=== PATIENT | male | born 1950 | race Caucasian/White ===

== ENCOUNTER 2023-07-23 06:14 | Day surgery (SDC) | payer MEDICARE, BC, SELFPAY ==
[2023-07-23] VITALS (10 sets, daily range): BP systolic 118–159; BP diastolic 53–87; BMI 36.9
[2023-07-23] MEDS: TYLENOL 1000 MG PO (09:05)
[2023-07-23] MEDS: NORMOSOL-R 1000 IV (09:06)
--- NOTE | 2023-07-23 11:19 | W.SUR.PREOP ---
Pre-Operative Surgical Note
-
I have examined this patient prior to the performance of the scheduled procedure.
The patient's condition is unchanged from the time of the current History and
Physical and the patient is able to undergo the scheduled procedure.
--- NOTE | 2023-07-23 11:19 | W.IMMPOSTOP ---
Surgical Immed Post Op Note
-
Primary Surgeon: Mark Hunter MD
Assisting Surgeon: None
Pre-op Diagnosis: Left inguinal hernia
Post-op Diagnosis: Same
Procedure Performed: Robotic left inguinal hernia repair with mesh.
Anesthesia Type: General
Specimen / Cultures: Left inguinal cord lipoma
Estimated Blood Loss: 3 cc
Complications: None
Operative Findings: Small left inguinal hernia, no direct component, very large cord lipoma. Floor are reinforced with large left Bard 3D max mid weight mesh. Right inguinal hernia repair intact however inferior corner of the mesh is slightly
folded.
POST OP PLAN:
Will discharge home after voiding.
--- NOTE | 2023-07-23 11:20 | OR.RPT ---
Operative Report
Operative Report
Patient Name: Hunter Singh
: 1950
Date of Operation: 07/23/2023
Preoperative Diagnosis: Reducible Inguinal hernia, left
Postoperative Diagnosis: Same
Procedure(s):
Robotic left inguinal Hernia Repair with mesh, (MERLINE approach)
Surgeon(s):
Dr. Hunter
Lead Nurse(s):
NASIMA Allred
DANNY Soni
Anesthesia: General
Estimated Blood Loss: 3 cc
Urine Output: None
Drains/Lines/Implants: Large 3D Max Bard mid weight mesh
Specimens: Left cord lipoma
Indication for surgery: The patient has a history of a small bowel obstruction secondary to a right inguinal hernia status post emergent repair 05/13. Patient evaluated in clinic for new onset left-sided inguinal pain. On his previous CT scan
fat-containing left inguinal hernia was noted so following review of therapeutic options they has elected to undergo a minimally invasive repair.
Operative Findings: Small left inguinal hernia, no direct component, very large cord lipoma. Floor are reinforced with large left Bard 3D max mid weight mesh. Right inguinal hernia repair intact however inferior corner of the mesh is slightly
folded.
Details of the operation:
The patient was brought to the Operating Room and placed in the supine position with the arms tucked. IV antibiotics were infused and Venodyne stockings placed. Following uneventful induction of general endotracheal anesthesia, an orogastric tube
were placed. The abdomen was prepped and draped in the usual sterile fashion. The abdomen was entered using a Veress technique which required 1 pass(es), pneumoperitoneum to 15 mmHg was obtained without difficulty. An 8mm trochar was passed
through the abdominal wall roughly 20 cm cephalad to the inguinal canal. We then confirmed that no inadvertent injury was made while passing the trocar or Veress needle. We then placed two additional 8 mm ports in the left upper and right upper
quadrants. We then docked the robot with a Prograsper in the left hand port and monopolar scissors in the right. Part of the cecum and right colon was plastered up to the lateral anterior abdominal wall. Our previous right inguinal hernia repair
was intact though I could see the inferior portion of the mesh was slightly curled up however there was no concern for any recurrence. A left indirect inguinal hernia was noted. We then began by creating a flap at the level of the ASIS laterally
working our way medially to the medial umbilical fold. There was a significant amount of preperitoneal fat that we carefully had to dissect through. Staying onto the peritoneum we were able to circumferentially dissect around the hernia sac and
and peel it off of the underlying spermatic cord and testicular vessels, taking care to preserve them. Medially we identified the midline pubis as well as Joshua's ligament and ensured to dissect 2 cm below the pubic rim over the bladder. After
exposure of the entire myopectineal orifice we identified and reduced: A small sized indirect inguinal hernia, no direct inguinal hernia, no femoral hernia, a very large retroperitoneal cord lipoma, which was isolated from the testicular vessel fat
packet and removed.
We then fixated a large 3D max mesh with a 2-0 Vicryl stitch at coopers medially and superior laterally. The flap was then closed with a running 2-0 barbed monocryl suture ensuring that the tail was cut flush with the medial fat pad so that no
barbs were exposed. During the closure of the flap a suction cannula was inserted into the flap and 20 cc of quarter percent Marcaine was instilled. The area in the flap cavity was then evacuated of air confirming that the mesh was flush and there
were no folds. A few small rents in the peritoneum was noted and closed with 2-0 Vicryl. A 5 mm Endo Catch bag was introduced to assist with removal of the very large cord lipoma. All needles and instruments were then removed and the robot was
undocked. The abdomen was then desufflated, the lipoma specimen removed and pneumoperitoneum evacuated. All skin sites were then closed with 4-0 Monocryl followed by Dermabond. Counts were correct and overall, the patient tolerated the procedure
well and was taken to the Recovery Room postoperatively in stable condition.
I was the attending physician and performed the procedure with assistance of the [employer]ER above. I was present for all portions of the case other than the skin closure.
Mark Hunter MD
== END 2023-07-23 13:15 | disposition home or self-care (01) ==
LOC: SDS 06:14
PROVIDERS: ATTENDING PHYSICIAN Surgery
DX: K40.90 Unilateral inguinal hernia, without obstruction or gangrene, not specified as recurrent (principal); D17.6 Benign lipomatous neoplasm of spermatic cord; Z87.19 Personal history of other diseases of the digestive system
CPT/HCPCS: 49650; 88304; C1781

== ENCOUNTER → 2024-03-04 12:40 | Outpatient (REF) | payer MEDICARE, BC, SELFPAY | LOC: HWRAD 12:40 | PROVIDERS: ATTENDING PHYSICIAN Internal Medicine | DX: R07.81 Pleurodynia (principal) | CPT/HCPCS: 71101 ==

== ENCOUNTER → 2024-03-21 13:39 | Outpatient (REF) | payer MEDICARE, BC, SELFPAY | LOC: HWRAD 13:39 | PROVIDERS: ATTENDING PHYSICIAN Internal Medicine | DX: E04.1 Nontoxic single thyroid nodule (principal) | CPT/HCPCS: 76536 ==

== ENCOUNTER → 2024-08-31 13:10 | Outpatient (REF) | payer MEDICARE, BC, SELFPAY ==
[2024-08-31 13:25] VITALS: BP 140/81; BP_SYST 70
== END ==
LOC: RADI 13:10
PROVIDERS: ATTENDING PHYSICIAN Internal Medicine
DX: E04.1 Nontoxic single thyroid nodule (principal)
CPT/HCPCS: 88173; 10005